=== PATIENT | female | born 1990 | race Caucasian/White ===

== ENCOUNTER → 2022-04-12 08:57 | Outpatient (BNVA) | payer OTHER, SELFPAY | PROVIDERS: PCP Hospitalist; Visit Provider Physician Assistant | DX: Z87.19 Personal history of other diseases of the digestive system (principal) | CPT/HCPCS: 99202 ==

== ENCOUNTER 2022-06-09 11:36 | Day surgery (SDC) | payer OTHER, SELFPAY ==
[2022-06-07 11:19] VITALS: BMI 24.9
--- NOTE | 2022-06-08 10:00 | HO.ANESPROP2 ---
HPI - Anesthesia Eval Consult details Narrative: 32yo F for Colonoscopy PMFSH Active Problems Active Problems: All Active Problems (Updated 04/12/22 @ 09:58 by Jasmin Andrew PA-C) Mixed anxiety and depressive disorder (Acute) Hx of Crohn's disease (Acute) Normal physical exam (Acute) Past Medical History Medical History Hx of Crohn's disease Mixed anxiety and depressive disorder Surgical History Surgical History Hx of colonoscopy Social History Social History Housing: House Patient Tobacco Use Status: Never used Tobacco e-Cigarette/Vaping Use: Never Used Current occupational status: employed Current occupation: [employer] Meds Allergies Allergy/AdvReac Type Severity Reaction Status Date / Time No Known Allergies Allergy Verified 04/12/22 09:09 Exam Exam Date and Time: June 08, 2022 1000 Height,Weight and Vital Signs: Height 5 ft 4 in Weight 65.771 kg Assessment and Plan Assessment Anesthesia Assessment: Chart Reviewed
[2022-06-09 11:59] VITALS: BMI 24.0
[2022-06-09 12:02] LABS: UPreg QC Valid YES; Urine Pregnancy NEGATIVE (NEGATIVE)
[2022-06-09 12:07] VITALS: BP 106/68; PULSE 84; RESP 18; TEMP 36.6; O2SAT 96
[2022-06-09 12:09] VITALS: BMI 24.0
--- NOTE | 2022-06-09 12:26 | HO.ANESPROP2 ---
[facility] Active Problems Active Problems: All Active Problems (Updated 06/08/22 @ 10:01 by Kierra Whitfield NP) Hx of Crohn's disease (Acute) Normal physical exam (Acute) Past Medical History Medical History Hx of Crohn's disease Mixed anxiety and depressive disorder Family History Family history of problems with anesthesia: No Surgical History Surgical History Hx of colonoscopy History of Problems with Anesthesia: No Social History Social History Housing: House Patient Tobacco Use Status: Never used Tobacco e-Cigarette/Vaping Use: Never Used Use of substances other than those prescribed or required for medical reasons: No Are you DNR?: No Advance Directives: No Advance Directives Information Provided: Yes Current occupational status: employed Current occupation: [employer] Allergies Allergy/AdvReac Type Severity Reaction Status Date / Time No Known Allergies Allergy Verified 04/12/22 09:09 Active Medications: Current Medications Lactated Ringer's (Lr) 1,000 mls @ 100 mls/hr IVCONT .Q10H SUZANNA Exam Exam Date and Time: June 09, 2022 1226 Height,Weight and Vital Signs: Height 5 ft 4 in Weight 63.503 kg Last Vital Signs Temp 97.9 F 06/09/22 12:07 Pulse 84 06/09/22 12:07 Resp 18 06/09/22 12:07 BP 106/68 06/09/22 12:07 Pulse Ox 96 06/09/22 12:07 O2 Del Method Room Air 06/09/22 12:07 Pertinent Lab Results Pertinent Lab Results: Laboratory Tests 06/09/22 11:48 Urine Test NEGATIVE Airway Mallampati Class: II TM Dist: >3cm Neck ROM: Full Heart: RRR Lungs: CTA Assessment and Plan Assessment Anesthesia Assessment: Anesthesia Plan Discussed Final Anesthetic Review Family History of Problems with Anesthesia: No History of Problems with Anesthesia: No NPO: Yes ASA Class: II Final Preanesthetic Review: Meds/Allgs Chart Reviewed, Consent Obtained/Reviewed and Anes Risks/Benef Reviewed Patient Risk: Low Procedure Risk: Low Anesthetic Plan Anesthetic Plan: MAC: Disposition: Standard PACU
--- NOTE | 2022-06-09 12:31 | P.HPSUR_ITS ---
Pre-Procedural Eval Section A Date of Service: 06/09/22 Section B Chief Complaint: hx of crohns Relevant Family History (Specify if Yes): No Relevant Social History: None Present Medications: see Short Stay Collaborative assessment Medical History: Significant History (crohns,anxiety ) History of Previous Operations: No relevant previous surgery Allergies: Allergies Allergy/AdvReac Type Severity Reaction Status Date / Time No Known Allergies Allergy Verified 04/12/22 09:09 Review of Systems Sugical H&P ROS: Negative: Constitution, Cardiovascular, Respiratory, Neurological, Psychiatric, Hem-Onc, Allergic/Immunologic, Gastrointestinal, Genitourinary, Musculoskeletal, Integumentary, Endocrine and Eyes/Ears/Nose/Throat Exam Surgical H&P Exam: Normal: HEENT, Normal: Heart, Normal: Lungs, Normal: Extremit ies, Normal: Abdomen, Normal: Skin and Normal: Neurological Plan Diagnosis/Plan: Unchanged I have reviewed the history and physical and performed a pertinent physical examination on my patient. No changes have occurred unless specified. Time Spent With Patient Time: Total time managing care of this patient today ____ minutes.
--- NOTE | 2022-06-09 12:32 | P.OP_ITS ---
Operative Note Operative Note Date of Service: 06/09/22 Narrative: Operative Information Procedure Description: Colonoscopy Indication: hx of crohns disease Anesthesia: MAC COLONOSCOPY Instrument: Olympus variable stiffness pediatric scope 190L Colonoscopy Monitoring: Vital signs and clinical assessment, continuous EKG monitoring, Pulse oximetry, Carbon Dioxide monitoring and blood pressure monitoring were done throughout the procedure. Colon withdrawal time was 12 minutes. Procedure: The patient was placed in the left lateral decubitis position and pre-procedure medications were administered. After a digital rectal examination of the ano-rectum, the video colonoscope was inserted into the rectum and advanced through the colon to the cecum/TI. The colonoscope was slowly withdrawn in a retrograde panoramic fashion and the colon mucosa was carefully examined including a retroflexed view of the rectum. Findings and interventions are described below. Procedure Difficulty: moderate due to looping and tortuous colon Findings: Terminal Ileum-normal, bx taken Random bx taken from right, transverse, and left colon, in separate jars Cecum:normal Ascending Colon: normal Transverse Colon -normal Descending Colon:normal Sigmoid Colon: normal Rectum: Retroflexion with small internal hemorrhoids, grade I Anorectum - normal Colon preparation: [place] Bowel Preparation Scale Right colon; 2 Transverse colon: 3 Left colon; 3 (0 = Unprepared colon segment with mucosa not seen due to solid stool that cannot be cleared. 1 = Portion of mucosa of the colon segment seen, but other areas of the colon segment not well seen due to staining, residual stool and/or opaque liquid. 2 = Minor amount of residual staining, small fragments of stool and/or opaque liquid, but mucosa of colon segment seen well. 3 = Entire mucosa of colon segment seen well with no residual staining, small fragments of stool or opaque liquid) Impression and Post Procedure Diagnosis: tortuous colon, internal hemorrhoids Plan: High fiber diet leaflet Avoid straining at stool, epsom salts and sitz bath, anusol supps or cream Repeat Colonoscopy in 2 years or earlier if clinically indicated Above findings were reviewed with the patient and relevant handouts were provided if indicated.
[2022-06-09] MEDS: Lactated Ringers 1,000 ML 100 ML IVCONT (12:34)
[2022-06-09 13:18] VITALS: BP 99/54; PULSE 76; RESP 16; TEMP 36.1; O2SAT 96
[2022-06-09 13:33] VITALS: BP 103/62; PULSE 69; RESP 16; TEMP 36.1; O2SAT 98
== END 2022-06-09 14:02 | disposition home or self-care (01) ==
PROVIDERS: Nurse Practitioner; PCP Hospitalist; Visit Provider Internal Medicine Gastroenterology
PROC: 0DJD8ZZ Inspection of Lower Intestinal Tract, Via Natural or Artificial Opening Endoscopic (ICD-10-PCS; CPT 45378; principal; 2022-06-09 13:00)
DX: K52.9 Noninfective gastroenteritis and colitis, unspecified (principal); K56.2 Volvulus; K64.0 First degree hemorrhoids; F41.8 Other specified anxiety disorders; Z79.899 Other long term (current) drug therapy
CPT/HCPCS: 45380; 81025; 88305

== ENCOUNTER → 2022-07-12 15:03 | Outpatient (BNVA) | payer OTHER, SELFPAY | PROVIDERS: PCP Hospitalist; Visit Provider Physician Assistant | DX: K64.9 Unspecified hemorrhoids (principal); Z87.19 Personal history of other diseases of the digestive system | CPT/HCPCS: 99212 ==

== ENCOUNTER 2022-08-15 08:08 | Outpatient (REF) | payer OTHER, SELFPAY ==
--- NOTE | ~2022-08-15 | CT_ITS ---
EXAMINATION: CT ENTEROGRAPHY ABDOMEN AND PELVIS WITH CONTRAST CLINICAL INFORMATION: There is a history of the digestive disorder COMPARISON: 04/22/2014 TECHNIQUE: Study performed with oral VoLumen (1350 mL) and 480 mL of water to distend the abdomen. The patient was injected with 85 mL Omnipaque 350 intravenous contrast which was administered without adverse effect. Coronal and sagittal reformatted images were obtained at the technologist's workstation. This CT examination was performed using dose optimization techniques as appropriate, variously including the following: *Automated exposure control *Adjustment of mA and/or kV according to patient size (this includes techniques or standardized protocols for targeted exams where dose is matched to indication/reason for exam; i.e. extremities or head) *Use of iterative reconstruction technique DLP: 356 mGy-cm FINDINGS: GASTROINTESTINAL FINDINGS: Stomach: Well-distended and normal in appearance. Small intestine: Satisfactorily distended and normal in appearance. Large intestine: Well-distended and normal in appearance. No perirectal changes demonstrated. The appendix is normal. Additional findings: No abnormal enhancement of the vasa recta or significant mesenteric or retroperitoneal lymphadenopathy is seen. No abdominal abscess or fistulous tract demonstrated. 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 Ureters and bladder: Within normal limits Lymphovascular structures: Within normal limits Bones: Within normal limits. Incidental limbus vertebra L1 and L2. Lung bases: Limits IUD in place without migration. CT/CT enterography IMPRESSION: No evidence for any inflammatory bowel disease.
== END 2022-08-15 08:09 | disposition home or self-care (01) ==
LOC: HO.CT 08:08
PROVIDERS: PCP Hospitalist; Visit Provider Physician Assistant
DX: Z87.19 Personal history of other diseases of the digestive system (principal)
CPT/HCPCS: 74177; Q9967

== ENCOUNTER 2022-08-24 09:21 | Outpatient (REF) | payer OTHER, SELFPAY ==
[2022-08-24 11:25] LABS: MANUAL DIFF FLAG NO
[2022-08-24 11:43] LABS: Basophils Absolute Auto 0.1 X10*3/uL (0.0-0.2); Basophils Percent Auto 1.3 % (0-2); Eosinophils Absolute Auto 0.2 X10*3/uL (0.0-0.4); Eosinophils Percent Auto 4.5 % (0-4); Hematocrit 39.2 % (37.0-47.0); Hemoglobin 12.9 g/dl (12.0-16.0); Imm Gran Abs Auto 0.01 X10*3/uL (0.00-0.03); Imm Gran Pct Auto 0.2 % (0.0-0.4); Lymphocytes Absolute Auto 1.4 X10*3/uL (1.2-4.9); Lymphocytes Percent Auto 25.3 % (20-40); Mean Corpuscular HGB Conc 32.9 g/dl (31.0-35.0); Mean Corpuscular Hemoglobin 32.1 pg (27.0-33.0); Mean Corpuscular Volume 97.5 fL (80.0-98.0); Mean Platelet Volume 9.5 fL (9.4-12.3); Monocytes Absolute Auto 0.5 X10*3/uL (0.1-1.2); Monocytes Percent Auto 8.8 % (2-11); Neutrophils Absolute Auto 3.2 x10*3/uL (2.0-8.3); Neutrophils Percent Auto 59.9 % (45-73); Platelet Count 240 X10*3/uL (160-400); Red Blood Count 4.02 X10*6/uL (4.20-5.50); Red Cell Distribution Width 11.9 % (11.0-16.0); White Blood Count 5.3 X10*3/uL (4.8-10.8)
[2022-08-24 12:09] LABS: Alanine Aminotransferase 24 U/L (0-31); Albumin Level 4.2 g/dL (3.5-5.0); Alkaline Phosphatase 49 U/L (39-117); Aspartate Amino Transferase 19 U/L (5-31); Blood Urea Nitrogen 13 mg/dL (9-16); Chloride 105 mmol/L (96-108); Cholesterol 154 mg/dL; Estimated Glomerular Filt Rate > 60; Glucose Fasting 110 mg/dL (60-99); HDL Cholesterol 64 mg/dL; LDL Cholesterol Calculated 83 mg/dl; Potassium 3.9 mmol/L (3.3-5.1); Sodium 140 mmol/L (135-145); Total Protein 6.6 g/dL (6.5-8.0); Triglycerides 35 mg/dL
[2022-08-24 12:14] LABS: Appearance Urine Clear; Color Urine Yellow; Glucose Urine UA Negative (Negative); Leukocyte Esterase Urine Negative (Negative); Nitrite Urine Negative (Negative); Specific Gravity - Urine <= 1.005 (1.005-1.025); Urine Blood Negative (Negative); Urine Ketones Negative (Negative); Urine Protein Negative (Neg-Trace)
[2022-08-24 12:31] LABS: TSH reflex Free T4 1.14 uIU/mL (0.32-4.0)
[2022-08-24 14:59] LABS: Bilirubin Total 0.4 mg/dL (0.0-1.0)
[2022-08-24 20:05] LABS: Carbon Dioxide 23 mmol/L (22-29)
== END 2022-08-24 09:22 | disposition home or self-care (01) ==
LOC: HO.WFDLDS 09:21
PROVIDERS: Hospitalist; Visit Provider Physician Assistant
DX: Z00.00 Encounter for general adult medical examination without abnormal findings (principal); K52.9 Noninfective gastroenteritis and colitis, unspecified; K64.9 Unspecified hemorrhoids; Z87.19 Personal history of other diseases of the digestive system; Z11.3 Encounter for screening for infections with a predominantly sexual mode of transmission
CPT/HCPCS: 36415; 80053; 80061; 81003; 84443; 85025

== ENCOUNTER 2022-10-18 09:52 | Outpatient (AMB) | payer SELFPAY ==
[2022-10-18 10:15] VITALS: BP 106/68; BMI 23.8
--- NOTE | 2022-10-18 10:15 | MHC.OFFVIS ---
Intake Vital Signs 10/18/22 10:15 Height 5 ft 5 in Weight 143 lb BMI 23.8 BP 106/68 Intake Visit Reasons: New patient Annual Intake Note: Mirena removal next year. 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 She has a history of HPV on her Pap smear about a year and half ago where she used to receive care in [place]. She has a Mirena IU S and she was told she could leave it in for an extended period of time it has been in about 6 years she got periods at the start but not for many years. She is sexually active in a monogamous relationship has no worries about STDs but is open to testing today at the visit. She is getting on November 13 and anticipates that sometime in the near future she would be discussing removal of the Mirena IU S and planning a . She has Crohn's disease which is currently in remission and she is on some medications for mental health. [facility] Medical History (Updated 10/18/22 @ 10:53 by Kat Moser CNM) Mixed anxiety and depressive disorder Hx of Crohn's disease Surgical History (Updated 10/18/22 @ 10:18 by MICHELLE Lagos) Hx of wisdom tooth extraction Hx of endoscopy Hx of colonoscopy Family History (Updated 10/18/22 @ 10:19 by MICHELLE Lagos) Maternal Grandmother Breast cancer Social History (Updated 10/18/22 @ 10:19 by MICHELLE Lagos) Household Members Other:: getting in Oct. Housing: House Alcohol intake: current Alcohol intake frequency: holidays/special occasions only Patient Tobacco Use Status: Never used Tobacco e-Cigarette/Vaping Use: Never Used Current occupational status: employed Current occupation: [employer] Female Reproductive History Menstrual Age of Menarche: 11 Duration of menses: 3-5 days control method: progestin IUCD Total pregnancies: 0 History of abnormal pap smear: Yes ([id number]) Physical Exam Vital Signs: Last Vital Signs BP 106/68 10/18/22 10:15 BMI result Body Mass Index 23.8 Const General: healthy appearing, comfortable, no acute distress, well developed and alert Nutritional Appearance: average body habitus Orientation/consciousness: patient oriented x3 Limitations: no limitations HEENT Head: Yes normocephalic Neck Neck: Yes normal visual inspection Thyroid: Thyroid normal Chest Chest palpation & inspection: normal inspection of the chest Breast/axilla inspection: normal inspection of the breasts and normal inspection of the axillae Breast/axilla palpation: normal palpation of the breasts and normal palpation of the axillae Resp Effort & Inspection: normal respiratory effort GI Inspection: Yes normal to inspection, No Abdominal wall edema and No distended Palpation (GI): Soft to palpation and nontender Other: Cervix pink closed smooth no Mirena string visible in os nulliparous. Uterus small posterior nontender mobile. Adnexa nontender not enlarged. Good tone with Kegel . General: Yes bladder normal to palpation External Female Exam: normal external appearance and normal appearance of the urethra Speculum Exam - Vagina: normal appearance of the vagina, normal palpation and normal vaginal discharge Speculum Exam - Cervix: normal appearance of the cervix, normal palpation, nontender and Other cervical findings present (Friable with Pap.) Bimanual exam- vagina & uterus: normal bimanual exam, normal palpation, uterine size normal, bladder normal to palpation, consistency normal, normal palpation, uterine mobility normal, uterine shape normal, No Cervical tenderness present, non-tender and no cervical motion tenderness Bimanual Exam- Adnexa, other: normal adnexae, no masses, normal and No adnexal tenderness Neuro General: patient oriented x3 Assessment & Plan Assessment & Plan (1) Well woman exam with routine gynecological exam: Code(s): Z01.419 - Encounter for gynecological examination (general) (routine) without abnormal findings (2) Family planning: Code(s): Z30.09 - Encounter for other general counseling and advice on contraception (3) Breast cancer screening: Code(s): Z12.39 - Encounter for other screening for malignant neoplasm of breast (4) Screen for sexually transmitted diseases: Code(s): Z11.3 - Encounter for screening for infections with a predominantly sexual mode of transmission (5) Cervical cancer screening: Comment: hx HPV pos Code(s): Z12.4 - Encounter for screening for malignant neoplasm of cervix (6) Presence of 52 mg levonorgestrel-releasing intrauterine device (IUD): Comment: Has it for 6 years, see note, string not visible... Code(s): Z97.5 - Presence of (intrauterine) contraceptive device Plan -----Discussed in this visit the following: healthy balanced diet, regular and consistent exercise, getting recommended health screens, doing the best she can for her particular health concerns, kegel exercises, pap smear screening and followup recommendations, mammography screening and SBE, normal changes in cycles in her life stage---for her mammograms with started age 39 she does have a grandmother who had breast cancer. .---I discussed with pt some of the optimal strategies for planning a , including achieving the best health she can before , including heathy balanced diet, exercise, wt loss to ideal BMI if appropriate, avoiding toxic substances and medications, not smoking, and taking a multivitamin w folic acid daily. Any specific health concerns should be managed before seeking/ putting oneself at risk of pregancy. In her case I recommend she have conversations with her primary care provider who currently is prescribing her medications and discuss any considerations to planning and if weaning off the medications is necessary how to plan for that. Discussed that when it comes time to planned if the strings are visible it will be easy to remove the Mirena if the strings are still not visible it may be a little bit more challenging she had them trimmed at 1 stage years ago and in retrospect she might have plan differently. Discussed that there are ways to remove it. She says she had a scan done to check on her Crohn's in the spring and the Mirena was visible in the correct place. Discussed the options in the [place] for care and delivery. Discussed that we can provide care but not delivery and that we send women to [facility]. Discussed that other options include starting and receiving all of ones care with the team who would be involved in the delivery of her baby in the future and that would include [facility], [facility] [place] and [address] [place] [address]. She lives in [facility] and thinks that heading [place] to [place] and options in that area would better serve her needs. Orders: Orders CT NG by PCR Today Z01.419 - Encounter for gynecological examination (general) (routine) without abnormal findings Pap Smear Today Z01.419 - Encounter for gynecological examination (general) (routine) without abnormal findings Bacterial Vaginosis Panel Today Z01.419 - Encounter for gynecological examination (general) (routine) without abnormal findings Coding Level of Care Code New Pt Prev Care [id number] Diagnoses Well woman exam with routine gynecological exam Z01.419 Family planning Z30.09 Breast cancer screening Z12.39 Screen for sexually transmitted diseases Z11.3 Cervical cancer screening Z12.4 Presence of 52 mg levonorgestrel-releasing intrauterine device (IUD) Z97.5
== END 2022-10-18 11:14 | disposition home or self-care (01) ==
PROVIDERS: PCP Hospitalist; Visit Provider Advanced Practice Midwife
DX: Z01.419 Encounter for gynecological examination (general) (routine) without abnormal findings (principal); Z30.09 Encounter for other general counseling and advice on contraception; Z12.39 Encounter for other screening for malignant neoplasm of breast; Z11.3 Encounter for screening for infections with a predominantly sexual mode of transmission; Z12.4 Encounter for screening for malignant neoplasm of cervix; Z97.5 Presence of (intrauterine) contraceptive device
CPT/HCPCS: 99385

== ENCOUNTER 2022-10-18 09:52 | Outpatient (REF) | payer SELFPAY ==
[2022-10-19 05:46] LABS: CT PCR NOT DETECTED (Not Detect.); NG PCR NOT DETECTED (Not Detect.)
[2022-10-19 15:11] LABS: BV Int Neg Control Negative (Negative); BV Int Pos Control Positive (Positive)
[2022-10-22 03:34] LABS: HPV mRNA E6/E7 rflx Not Detected (Not Detected)
== END 2022-10-18 09:53 | disposition home or self-care (01) ==
LOC: HO.LNP 09:52
PROVIDERS: PCP Hospitalist; Visit Provider Advanced Practice Midwife
DX: Z01.419 Encounter for gynecological examination (general) (routine) without abnormal findings (principal); Z11.51 Encounter for screening for human papillomavirus (HPV); Z20.2 Contact with and (suspected) exposure to infections with a predominantly sexual mode of transmission
CPT/HCPCS: 0353U; 87480; 87510; 87624; 87660; 88142

== ENCOUNTER 2023-04-10 08:04 | Outpatient (AMB) | payer OTHER, SELFPAY ==
--- NOTE | 2023-04-10 08:07 | MHC.PC.OV ---
Vital Signs 04/10/23 08:32 Height 5 ft 5 in Weight 144 lb 6 oz BMI 24.0 BP 116/58 L Blood Pressure Location Lt brachial Position Sitting Pulse 77 Pulse Source Pulse Oximeter Pulse Oximetry (%) 96 Oxygen Delivery Method Room Air Intake Visit Reasons: physical wellness/prevention YA Intake Note: Patient is here for a physical. Administrative Director Required: No Accompanied by: Self / Same As Patient Allergies No Known Allergies Allergy (Verified 04/10/23 08:15) Medication List - Last Reconciled 04/10/23 by JOHN Thornton-DANIELLA bupropion HCl 150 mg PO QAM cholecalciferol (vitamin D3) 25 mcg PO DAILY escitalopram oxalate 20 mg PO DAILY levonorgestrel (Mirena) intrauterine Tobacco use date assessed: 04/10/23 Dental Screening Dental Screen Date: 04/10/23 Did you have a dental visit in the last 12 months?: Yes Did you have a dental problem in the last 6 months where you did not have access to dental care?: No Was dental information given to patient?: Patient has dentist HPI HPI Comments History of Present Illness Details 32-year-old female Crohn's disease, MDD, [facility]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 Interested in family planning in the next year or two. Wonders about tapering off her current medications to prepare for motherhood. These meds were prescribed by infant and toddler teacher in the past and then taken over by PCP. Reports no concerns r/t Crohns. 116/58 L 96% 77 PFSH Medical History (Updated 04/10/23 @ 08:38 by VÍCTOR Thornton) Mixed anxiety and depressive disorder Hx of Crohn's disease Surgical History (Updated 10/18/22 @ 10:18 by MICHELLE Lagos) Hx of wisdom tooth extraction Hx of endoscopy Hx of colonoscopy Family History (Updated 04/10/23 @ 09:33 by Farheen Patel CMA) Maternal Grandmother Breast cancer Social History (Updated 04/10/23 @ 09:32 by Farheen Patel CMA) Household Members: Spouse Household Members Other:: getting in Oct. Housing: House 75 years or older and lives alone: No Alcohol intake: current Alcohol intake frequency: holidays/special occasions only Patient Tobacco Use Status: Never used Tobacco e-Cigarette/Vaping Use: Never Used Use of substances other than those prescribed or required for medical reasons: No Have you been hit, kicked, punched, or otherwise hurt by someone within the past year? If so, by whom?: No Do you feel safe in your current relationship?: No Current Relationship Is there a partner from a previous relationship who is making you feel unsafe now?: No Are you made to feel afraid or neglected: No service: No Current occupational status: employed Current occupation: [employer] Current occupational exposures/hazards: No Sexually active: Yes Sexual orientation: Straight/Heterosexual Gender identity: Female Cognitive needs: No Hearing needs: No Vision needs: No Female Reproductive History Menstrual Age of Menarche: 11 Questionnaire PHQ-9 Over the last 2 weeks, how often have you been bothered by any of the following problems? 1. Little interest or pleasure in doing things: not at all 2. Feeling down, depressed, or hopeless: several days 3. Trouble falling or staying asleep, or sleeping too much: not at all 4. Feeling tired or having little energy: several days 5. Poor appetite or overeating: not at all 6. Feeling bad about yourself - or that you are a failure or have let yourself or your family down: several days 7. Trouble concentrating on things, such as reading the newspaper or watching television: not at all 8. Moving or speaking so slowly that other people could have noticed. Or the opposite - being so fidgety or restless that you have been moving around a lot more than usual: not at all 9. Thoughts that you would be better off or of hurting yourself in some way: not at all Total score: 3 Depression Screening Interpretation: Positive Depression Screening Follow-up: Existing condition and In treatment Depression Screening Done: Yes 36455 - PHQ-9 Billing: Yes Source: Developed by Drs. Desmond Lara, Salma B.WMauro Caldera and colleagues, with an educational vidal from [employer]. Thrive Questionnaire Date Thrive assessed: 03/28/22 I am a: Patient What is your living situation today?: I have a steady place to live Within the past 12 months, did the food you bought not last and you didn't have the money to get more?: Never true Within the past 12 months, did you worry whether your food would run out before you got money to buy more?: Never true Do you have trouble paying for medicines?: No Do you have trouble getting transportation to medical appointments?: No Do you have trouble paying your heating and electricity bill?: No Do you have trouble taking care of your child, family member or friend?: No Do you have trouble with day-to-day activities such as bathing, preparing meals, shopping, managing finances, etc.?: No Are you currently unemployed and looking for a job?: No Are you interested in more education?: No Please select the resources that you would like help with: None Currently or been in a relationship where the following occur: no concerns reported THRIVE Score: 0 AUDIT C Alcohol Use Questionnaire (AUDIT-C) 1. How often do you have a drink containing alcohol?: 2-4 times a month 2. How many drinks containing alcohol do you have on a typical day when you are drinking?: 1 or 2 3. How often do you have six or more drinks on one occasion?: Never Total Score: 2 Score Reviewed/Action Taken: Yes AMIRA-7 AMB Questionnaire AMIRA-7 Date AMIRA - 7 assessed: 03/28/22 Feeling nervous, anxious, or on edge: 1 = Several days Not being able to stop or control worryin = Not at all Worrying too much about different things: 1 = Several days Trouble relaxin = Not at all Being so restless that it is hard to sit still: 0 = Not at all Becoming easily annoyed or irritable: 0 = Not at all Feeling afraid as if something awful might happen: 0 = Not at all Total AMIRA-7 score (0-4 normal; 5-9 mild; 10-14 moderate; 15-21 severe): 2 Source: Developed by Drs. Desmond Lara, Mauro Strong and colleagues, with an educational vidal from [employer]. AMIRA-7 Assessment Billing AMIRA-7 Assessment Tool: AMIRA-7 Assessment 10071 Review of Systems Const All systems reviewed & are unremarkable except as noted in HPI and below Physical exam (Primary Care) Vital Signs: Last Vital Signs Pulse 77 04/10/23 08:32 BP 116/58 L 04/10/23 08:32 Pulse Ox 96 04/10/23 08:32 Oxygen Delivery Method Room Air 04/10/23 08:32 BMI result Body Mass Index 24.0 Tobacco/Smoking Status: Tobacco use Status Tobacco use date assessed 04/10/23 04/10/23 08:13 Patient Tobacco Use Status Never used Tobacco 04/10/23 08:08 e-Cigarette/Vaping Use Never Used 04/10/23 08:08 PHQ-9: PHQ-9 Score PHQ-9: Total score 3 04/10/23 09:30 Depression Screening Interpretation: Positive Depression Screening Follow-up: Existing condition and In treatment Thrive Assessment: Date of Thrive Assessment Date Thrive assessed 03/28/22 04/10/23 08:08 Currently or been in a relationship where the following occur: no concerns reported Const Other: awake alert oriented NAD MMM LS CTAB RRR Mildly anxious yet cooperative and pleasant Office Procedures Flu Questionnaire Does the patient have a severe egg allergy?: No Does the patient have severe life threatening allergies?: No Does the patient have a fever or illness today?: No Has the patient ever had Guillain-[place] Syndrome?: No Has the patient ever had any past reaction to a flu shot?: No Immunizations flu vacc [id number] 6mos up(PF) 60 mcg(15 mcgx4)/0.5 mL IM syringe Performing Provider: VÍCTOR Thornton Performing Location: [facility] Administered by: Farheen Patel CMA on 04/10/23 09:28 Dose Route Admin Location Dispensed Lot Number Expiration Date [employer] Studio Assistant 0.5 mL IM Left Deltoid 0.5 mL [id number] 08/06/23 [id number] [employer] VIS Given Date VIS Provided VIS Publication Date 04/10/23 Single Vaccine 20 Eligibility Eligibility Date Funding Source Not [facility] Eligible 04/10/23 Private Assessment and Plan Assessment & Plan (1) MDD (major depressive disorder), recurrent episode: Comment: Active, currently maintained on Lexapro and bupropion. Active with [facility]. Interested in a psychiatry referral to discuss coming off of these medications for family planning purposes. Referral placed today Code(s): F33.9 - Major depressive disorder, recurrent, unspecified Qualifiers: Major depression episode severity: mild Qualified Code(s): F33.0 - Major depressive disorder, recurrent, mild (2) AMIRA (generalized anxiety disorder): Comment: Active, currently maintained on Lexapro and bupropion. Active with [facility]. Interested in a psychiatry referral to discuss coming off of these medications for family planning purposes. Referral placed today Code(s): F41.1 - Generalized anxiety disorder (3) Crohn's disease in remission: Comment: Was on 1 biologic in the past. Colonoscopy 2022 within normal limits. Managed by [facility]. Repeat colonoscopy in 2024 Code(s): K50.90 - Crohn's disease, unspecified, without complications (4) Presence of 52 mg levonorgestrel-releasing intrauterine device (IUD): Comment: Present for 6 years. Referral placed to 7 sisters for further management Code(s): Z97.5 - Presence of (intrauterine) contraceptive device (5) Cervical cancer screening: Comment: hx HPV pos; 10/18/2022 Pap is negative with negative HPV. Code(s): Z12.4 - Encounter for screening for malignant neoplasm of cervix (6) Family planning: Comment: Referral placed a 7 sister's midwifery care Code(s): Z30.09 - Encounter for other general counseling and advice on contraception Plan: Total time spent caring for the patient today was 40 minutes. This includes time spent before the visit reviewing the chart, time spent during the visit, and time spent after the visit on documentation This note is constructed using voice recognition software. While every effort has been made to ensure accuracy in agricultural aircraft pilot, still errors may have been included Sometimes, these errors may affect the content or meaning of the given sentence . Plan Return to office in 2-3 months for complete physical exam Orders: Orders LDL Cholesterol Direct Today F33.9 - Major depressive disorder, recurrent, unspecified, F41.1 - Generalized anxiety disorder, K50.90 - Crohn's disease, unspecified, without complications, Z00.00 - Encounter for general adult medical examination without abnormal findings Vitamin D 1,25 dihydroxy Today F33.9 - Major depressive disorder, recurrent, unspecified, F41.1 - Generalized anxiety disorder, K50.90 - Crohn's disease, unspecified, without complications, Z00.00 - Encounter for general adult medical examination without abnormal findings Hemoglobin A1c Today F33.9 - Major depressive disorder, recurrent, unspecified, F41.1 - Generalized anxiety disorder, K50.90 - Crohn's disease, unspecified, without complications, Z00.00 - Encounter for general adult medical examination without abnormal findings Comprehensive Met. Panel Today F33.9 - Major depressive disorder, recurrent, unspecified, F41.1 - Generalized anxiety disorder, K50.90 - Crohn's disease, unspecified, without complications, Z00.00 - Encounter for general adult medical examination without abnormal findings Microalbumin, Random (w Creat) Today F33.9 - Major depressive disorder, recurrent, unspecified, F41.1 - Generalized anxiety disorder, K50.90 - Crohn's disease, unspecified, without complications, Z00.00 - Encounter for general adult medical examination without abnormal findings TSH reflex Free T4 Today F33.9 - Major depressive disorder, recurrent, unspecified, F41.1 - Generalized anxiety disorder, K50.90 - Crohn's disease, unspecified, without complications, Z00.00 - Encounter for general adult medical examination without abnormal findings Hemoglobin and Hematocrit Today F33.9 - Major depressive disorder, recurrent, unspecified, F41.1 - Generalized anxiety disorder, K50.90 - Crohn's disease, unspecified, without complications, Z00.00 - Encounter for general adult medical examination without abnormal findings Influenza [id number] Immunization Today Z23 - Encounter for immunization Referrals Psychiatry Referral F33.9 - Major depressive disorder, recurrent, unspecified, F41.1 - Generalized anxiety disorder Gynecologic Oncology Referral Z12.4 - Encounter for screening for malignant neoplasm of cervix, Z30.09 - Encounter for other general counseling and advice on contraception, Z97.5 - Presence of (intrauterine) contraceptive device Coding Level of Care Code Est Pt Level 5 (15790) Diagnoses Mild episode of recurrent major depressive disorder F33.0 Major depression episode severity: mild AMIRA (generalized anxiety disorder) F41.1 Crohn's disease in remission K50.90 Presence of 52 mg levonorgestrel-releasing intrauterine device (IUD) Z97.5 Cervical cancer screening Z12.4 Family planning Z30.09 Additional Codes AMIRA-7 Assessment Billing - AMIRA-7 Assessment Tool: AMIRA-7 Assessment 48364 ([id number])
[2023-04-10 08:32] VITALS: BP 116/58; PULSE 77; O2SAT 96; BMI 24.0
== END 2023-04-10 09:19 | disposition home or self-care (01) ==
PROVIDERS: PCP Hospitalist; Visit Provider Nurse Practitioner Family
DX: K50.90 Crohn's disease, unspecified, without complications (principal); F33.0 Major depressive disorder, recurrent, mild; F41.1 Generalized anxiety disorder; Z23 Encounter for immunization; Z97.5 Presence of (intrauterine) contraceptive device; Z30.09 Encounter for other general counseling and advice on contraception
CPT/HCPCS: 90471; 90686; 99215

== ENCOUNTER 2023-04-10 08:44 | Outpatient (REF) | payer OTHER, SELFPAY ==
[2023-04-10 11:48] LABS: Hematocrit 41.5 % (37.0-47.0); Hemoglobin 13.7 g/dl (12.0-16.0)
[2023-04-10 11:50] LABS: Estimated Average Glucose 94 mg/dL; Hemoglobin A1c % 4.9 % (<6.0)
[2023-04-10 12:09] LABS: Alanine Aminotransferase 18 U/L (0-31); Albumin Level 4.4 g/dL (3.5-5.0); Alkaline Phosphatase 58 U/L (39-117); Anion Gap 11 (12-20); Aspartate Amino Transferase 20 U/L (5-31); Bilirubin Total 0.4 mg/dL (0.0-1.0); Blood Urea Nitrogen 11 mg/dL (9-16); Calcium 9.7 mg/dL (8.4-10.2); Carbon Dioxide 28 mmol/L (22-29); Chloride 105 mmol/L (96-108); Estimated Glomerular Filt Rate > 60; Glucose Random 86 mg/dL (60-115); Sodium 140 mmol/L (135-145); Total Protein 6.8 g/dL (6.5-8.0)
[2023-04-10 12:26] LABS: TSH reflex Free T4 0.95 uIU/mL (0.32-4.0)
[2023-04-10 12:29] LABS: Creatinine Urine 13.58 mg/dL; Microalbumin Urine < 5.0 mg/L
[2023-04-14 12:08] LABS: LDL Cholesterol Direct 81 mg/dL (<100); VITAMIN D (1,25 OH) D3 36 pg/mL; Vit D (1,25-Dihydroxy) Total 36 pg/mL (18-72); Vitamin D (1,25 OH) D2 <8 pg/mL
== END 2023-04-10 08:45 | disposition home or self-care (01) ==
LOC: HO.WFDLDS 08:44
PROVIDERS: Visit Provider Nurse Practitioner Family
DX: Z00.00 Encounter for general adult medical examination without abnormal findings (principal); K50.90 Crohn's disease, unspecified, without complications; F33.9 Major depressive disorder, recurrent, unspecified; F41.1 Generalized anxiety disorder
CPT/HCPCS: 36415; 80053; 82043; 82570; 82652; 83036; 83721; 84443; 85014; 85018

== ENCOUNTER 2023-06-26 08:06 | Outpatient (AMB) | payer OTHER, SELFPAY ==
--- NOTE | 2023-06-26 08:07 | A.OFFPC_ITS ---
Vital Signs 06/26/23 08:11 Height 5 ft 5 in Weight 149 lb BMI 24.8 BP 108/62 Blood Pressure Location Rt brachial Position Sitting Pulse 76 Pulse Source Pulse Oximeter Pulse Oximetry (%) 97 Intake Visit Reasons: cpe Intake Note: pt is here for annual exam, last pap 06/2022 Motorcycle Racer Required: No Allergies No Known Allergies Allergy (Verified 06/26/23 08:30) Medication List - Last Reconciled 06/26/23 by Gloria Pringle, [facility]- bupropion HCl XL 150 mg PO QAM cholecalciferol (vitamin D3) 25 mcg PO DAILY escitalopram oxalate 20 mg PO DAILY levonorgestrel (Mirena) intrauterine Tobacco use date assessed: 04/10/23 Dental Screening Dental Screen Date: 04/10/23 HPI HPI Comments History of Present Illness Details 32-year-old female Crohn's disease, MDD, AMIRA Surgery - wisdom teeth removed Family hx Dad asthma, alcohol, psych Mom -hypothyroid Siblings - 2 brothers - anxiety and depression MGM: breast cancer age 39, HTN, clotting disorder factor 5 leiden (patient has been screened for this and negative) MGF: HTN, DM, Factor 5 lieden - PGM: life long smoker, age 80 PGF: liver dz related to etoh - Maternal Uncle w/ Factor 5 otherwise denies sig hx in aunt, uncle and first degree cousins Specialists GI pediatric intensive physician Ophtho Counselor [facility] Health maintenance Colonoscopy Jun 09 2022 repeat in 2024 Pap smear history of HPV in 2020, normal October 2022 Vaccines: Tdap UTD, Flu UTD Eyes - wears glasses/contacts, needs exam. Has PPO insurance, does not need referral. Last set of labs August 2022 * abnormal fasting glucose of 1 otherwise Labs 04/2023 WNL including a1c, direct LDL and Vit D WNL Here today for CPE Had appt w/ STATISTICAL SECRETARY 7 sisters, Laura has add'l year on it Has not had an appt w/ Psych d/t insurance changes; active w/ [facility] and will be est care w/ Psych there. Skin - acne on back, using salicylic acid wash; no great improvement. Sleep - no issues Mood - good. new job [employer] this is a promotion and likes this [facility] Medical History (Updated 05/20/24 @ 08:26 by [facility] Mixed anxiety and depressive disorder Hx of Crohn's disease Surgical History Hx of wisdom tooth extraction Hx of endoscopy Hx of colonoscopy Family History Maternal Grandmother Breast cancer Social History Household Members: Spouse Household Members Other:: getting in Oct. Housing: House 75 years or older and lives alone: No Alcohol intake: current Alcohol intake frequency: holidays/special occasions only Patient Tobacco Use Status: Never used Tobacco e-Cigarette/Vaping Use: Never Used service: No Current occupational status: employed Current occupation: [employer] Current occupational exposures/hazards: No Sexual orientation: Straight/Heterosexual Gender identity: Female Cognitive needs: No Hearing needs: No Vision needs: No Female Reproductive History Menstrual Age of Menarche: 11 Questionnaire PHQ-9 Over the last 2 weeks, how often have you been bothered by any of the following problems? 1. Little interest or pleasure in doing things: not at all 2. Feeling down, depressed, or hopeless: not at all 3. Trouble falling or staying asleep, or sleeping too much: not at all 4. Feeling tired or having little energy: several days 5. Poor appetite or overeating: several days 6. Feeling bad about yourself - or that you are a failure or have let yourself or your family down: not at all 7. Trouble concentrating on things, such as reading the newspaper or watching television: several days 8. Moving or speaking so slowly that other people could have noticed. Or the opposite - being so fidgety or restless that you have been moving around a lot more than usual: not at all 9. Thoughts that you would be better off or of hurting yourself in some way: not at all Total score: 3 Depression Screening Interpretation: Negative Depression Screening Done: Yes 02175 - PHQ-9 Billing: Yes Source: Developed by Drs. Desmond Lara, Salma Story, Mauro Saldivar and colleagues, with an educational vidal from [employer]. Thrive Questionnaire Date Thrive assessed: 06/26/23 I am a: Patient What is your living situation today?: I have a steady place to live Within the past 12 months, did the food you bought not last and you didn't have the money to get more?: Never true Within the past 12 months, did you worry whether your food would run out before you got money to buy more?: Never true Do you have trouble paying for medicines?: No Do you have trouble getting transportation to medical appointments?: No Do you have trouble paying your heating and electricity bill?: No Do you have trouble taking care of your child, family member or friend?: No Do you have trouble with day-to-day activities such as bathing, preparing meals, shopping, managing finances, etc.?: No Are you currently unemployed and looking for a job?: No Are you interested in more education?: No Please select the resources that you would like help with: None Currently or been in a relationship where the following occur: no concerns reported THRIVE Score: 0 AMIRA-7 AMB Questionnaire AMIRA-7 Date AMIRA - 7 assessed: 06/26/23 Feeling nervous, anxious, or on edge: 0 = Not at all Not being able to stop or control worryin = Not at all Worrying too much about different things: 0 = Not at all Trouble relaxin = Not at all Being so restless that it is hard to sit still: 0 = Not at all Becoming easily annoyed or irritable: 0 = Not at all Feeling afraid as if something awful might happen: 0 = Not at all Total AMIRA-7 score (0-4 normal; 5-9 mild; 10-14 moderate; 15-21 severe): 0 Source: Developed by Drs. Desmond Lara, Mauro Strong and colleagues, with an educational vidal from [employer]. AMIRA-7 Assessment Billing AMIRA-7 Assessment Tool: AMIRA-7 Assessment 32993 Review of Systems Const Details: Constitutional: Denies fever. Skin: Denies rash. Eye: Denies eye pain. ENMT: Denies sore throat and nasal congestion. Respiratory: Denies shortness of breath and cough. Gastrointestinal: Denies nausea, vomiting or abdominal pain. Cardiovascular: Denies chest pain and syncope. Genitourinary: Denies dysuria. Musculoskeletal: Denies back pain and extremity pain. Neurologic: Denies headaches, confusion, and weakness. Psychiatric: Denies suicidal thoughts and substance abuse. Allergy/ Immunologic: Denies impaired immunity. Physical exam (Primary Care) Vital Signs: Last Vital Signs Pulse 76 06/26/23 08:11 BP 108/62 06/26/23 08:11 Pulse Ox 97 06/26/23 08:11 BMI result Body Mass Index 24.8 Tobacco/Smoking Status: Tobacco use Status Tobacco use date assessed 04/10/23 06/26/23 08:09 Patient Tobacco Use Status Never used Tobacco 06/26/23 08:09 e-Cigarette/Vaping Use Never Used 06/26/23 08:09 Depression Screening Interpretation: Negative Thrive Assessment: Date of Thrive Assessment Date Thrive assessed 03/28/22 06/26/23 08:09 Currently or been in a relationship where the following occur: no concerns reported Const Other: General: Well developed, well nourished, in no acute distress. Appears stated age. Head: Normocephalic, atraumatic. Eyes: Pupils are equal, round and reactive to light and accommodation. Conjunctivae are clear. Vision grossly normal. Ears: TMs clear AU, EACS WNL Nose: Patent, without discharge. Mouth: There are no ulcers or lesions noted. No inflammation, no post nasal drip, no plaques nor exudates. Neck: Supple, no adenopathy or thyromegaly. Lungs: Clear to auscultation bilaterally. No rales, rhonchi or wheeze noted. Good air flow in all gonzales. Heart: Regular rate and rhythm. No murmurs, click, rubs or gallops are noted. Abdomen: Bowel sounds present in all quadrants. The abdomen is soft, nontender, with no masses or organomegaly noted. No hernias are noted. Musculoskeletal: Joints are nontender, without swelling, redness, or effusions. Range of motion is observed to be normal. Pulses: Peripheral pulses are equal and palpable bilaterally. Extremities: No clubbing, cyanosis nor edema is noted. Neurologic: Gait and station normal. Cranial Nerves 2-12 intact. Motor strength grossly symmetrical and intact. No sensory loss. Balance normal. Skin: No rashes, ulcers, or lesions noted. Turgor is good. Skin color is good. Hair and nails are without abnormalities. Psych: Normal eye contact, affect and mood appropriate, and normal interactions. Patient is alert and appropriate to context. Extremities: No clubbing, cyanosis or edema. Assessment and Plan Assessment & Plan (1) Encounter for general adult medical examination without abnormal findings: Code(s): Z00.00 - Encounter for general adult medical examination without abnormal findings Patient Instructions: RTO 1 YEAR FOR CPE, SOONER NEEDED. HEALTH SCREENINGS FOR WOMEN YOU SHOULD VISIT YOUR HEALTH CARE PROVIDER FROM TIME TO TIME, EVEN IF YOU ARE HEALTHY. THE PURPOSE OF THESE VISITS IS TO: SCREEN FOR MEDICAL ISSUES ASSESS YOUR RISK FOR FUTURE MEDICAL PROBLEMS ENCOURAGE A HEALTHY LIFESTYLE UPDATE VACCINATIONS AND OTHER PREVENTIVE CARE SERVICES HELP YOU GET TO KNOW YOUR PROVIDER IN CASE OF AN ILLNESS INFORMATION EVEN IF YOU FEEL FINE, YOU SHOULD STILL SEE YOUR PROVIDER FOR REGULAR CHECKUPS. THESE VISITS CAN HELP YOU AVOID PROBLEMS IN THE FUTURE. FOR EXAMPLE, THE ONLY WAY TO FIND OUT IF YOU HAVE HIGH BLOOD PRESSURE IS TO HAVE IT CHECKED REGULARLY. HIGH BLOOD SUGAR AND HIGH CHOLESTEROL LEVELS ALSO MAY NOT HAVE ANY SYMPTOMS IN THE EARLY STAGES. A SIMPLE BLOOD TEST CAN CHECK FOR THESE CONDITIONS. THERE ARE SPECIFIC TIMES WHEN YOU SHOULD SEE YOUR PROVIDER OR RECEIVE SPECIFIC HEALTH SCREENINGS. THE US PREVENTIVE SERVICES [employer] PUBLISHES A LIST OF RECOMMENDED SCREENINGS. BELOW ARE SCREENING GUIDELINES FOR WOMEN AGES 18 TO 39. BLOOD PRESSURE SCREENING YOUR BLOOD PRESSURE SHOULD BE CHECKED AT LEAST ONCE EVERY 3 TO 5 YEARS IF: YOUR BLOOD PRESSURE IS IN THE NORMAL RANGE (TOP NUMBER LESS THAN 120 MM HG AND BOTTOM NUMBER LESS THAN 80 MM HG) YOU DON'T HAVE RISK FACTORS FOR HIGH BLOOD PRESSURE ASK YOUR PROVIDER IF YOU NEED YOUR BLOOD PRESSURE CHECKED MORE OFTEN IF: THE TOP NUMBER IS 120 TO 129 MM HG OR THE BOTTOM NUMBER IS 70 TO 79 MM HG YOU HAVE DIABETES, HEART DISEASE, KIDNEY PROBLEMS, ARE OVERWEIGHT, OR HAVE CERTAIN OTHER HEALTH CONDITIONS YOU HAVE A FIRST-DEGREE RELATIVE WITH HIGH BLOOD PRESSURE YOU ARE BLACK YOU HAD HIGH BLOOD PRESSURE DURING A IF THE TOP NUMBER IS 130 MM HG OR GREATER OR THE BOTTOM NUMBER IS 80 MM HG OR GREATER, THIS IS CONSIDERED STAGE 1 HYPERTENSION. SCHEDULE AN APPOINTMENT WITH YOUR PROVIDER TO LEARN HOW YOU CAN REDUCE YOUR BLOOD PRESSURE. WATCH FOR BLOOD PRESSURE SCREENINGS IN YOUR AREA. ASK YOUR PROVIDER IF YOU CAN STOP IN TO HAVE YOUR BLOOD PRESSURE CHECKED. BREAST CANCER SCREENING EXPERTS DO NOT AGREE ABOUT THE BENEFITS OF BREAST SELF-EXAMS IN FINDING BREAST CANCER OR SAVING LIVES. TALK TO YOUR PROVIDER ABOUT WHAT IS BEST FOR YOU. A SCREENING MAMMOGRAM IS NOT RECOMMENDED FOR MOST WOMEN UNDER AGE 40. YOUR PROVIDER MAY DISCUSS AND RECOMMEND MAMMOGRAMS, MRI SCANS, OR ULTRASOUNDS IF YOU HAVE AN INCREASED RISK FOR BREAST CANCER, SUCH : A MOTHER OR SISTER WHO HAD BREAST CANCER AT A YOUNG AGE (MOST OFTEN STARTING SCREENING EARLIER THAN THE AGE THE CLOSE RELATIVE WAS DIAGNOSED) YOU CARRY A HIGH-RISK GENETIC MARKER CERVICAL CANCER SCREENING CERVICAL CANCER SCREENING SHOULD START AT AGE 21 YEARS UNLESS YOUR PROVIDER ADVISES OTHERWISE. AFTER THE FIRST TEST: WOMEN AGES 21 THROUGH 29 SHOULD HAVE A PAP TEST EVERY 3 YEARS. EXOPRTS DO NOT AGREE ON WHETHER HPV TESTING IS RECOMMENDED FOR THIS AGE GROUP. WOMEN AGES 30 THROUGH 65 SHOULD BE SCREENED WITH EITHER A PAP TEST EVERY 3 YEARS OR THE HPV TEST EVERY 5 YEARS OR BOTH TESTS EVERY 5 YEARS (CALLED COTESTING ). WOMEN WHO HAVE BEEN TREATED FOR PRECANCER (CERVICAL DYSPLASIA) SHOULD CONTINUE TO HAVE PAP TESTS FOR 20 YEARS AFTER TREATMENT OR UNTIL AGE 65, WHICHEVER IS LONGER. IF YOU HAVE HAD YOUR UTERUS AND CERVIX REMOVED (TOTAL HYSTERECTOMY), AND YOU HAVE NOT BEEN DIAGNOSED WITH CERVICAL CANCER OR PRECANCER (HIGH GRADE CERVICAL NEOPLASIA), YOU DO NOT NEED CERVICAL CANCER SCREENING. CHOLESTEROL SCREENING CHOLESTEROL SCREENING SHOULD BEGIN AT: AGE 45 FOR WOMEN WITH NO KNOWN RISK FACTORS FOR CORONARY HEART DISEASE AGE 20 FOR WOMEN WITH KNOWN RISK FACTORS FOR CORONARY HEART DISEASE REPEAT CHOLESTEROL SCREENING SHOULD TAKE PLACE: EVERY 5 YEARS FOR WOMEN WITH NORMAL CHOLESTEROL LEVELS MORE OFTEN IF CHANGES OCCUR IN LIFESTYLE (INCLUDING WEIGHT GAIN AND DIET) MORE OFTEN IF YOU HAVE DIABETES, HEART DISEASE, KIDNEY PROBLEMS, OR CERTAIN OTHER CONDITIONS DIABETES SCREENING YOU SHOULD BE SCREENED FOR DIABETES STARTING AT AGE 35 AND THEN REPEATED EVERY 3 YEARS IF YOU HAVE NO RISK FACTORS FOR DIABETES. SCREENING MAY NEED TO START EARLIER AND BE REPEATED MORE OFTEN IF YOU HAVE OTHER RISK FACTORS FOR DIABETES, SUCH : YOU HAVE A FIRST DEGREE RELATIVE WITH DIABETES. YOU ARE OVERWEIGHT OR HAVE OBESITY. YOU HAVE HIGH BLOOD PRESSURE, PREDIABETES, OR A HISTORY OF HEART DISEASE. SCREENING FOR DIABETES SHOULD BE DONE IF YOU ARE PLANNING TO BECOME AND YOU ARE OVERWEIGHT AND HAVE OTHER RISK FACTORS SUCH HIGH BLOOD PRESSURE. DENTAL EXAM GO TO THE DENTIST ONCE OR TWICE EVERY YEAR FOR AN EXAM AND CLEANING. YOUR DENTIST WILL EVALUATE IF YOU NEED MORE FREQUENT VISITS. EYE EXAM HAVE AN EYE EXAM EVERY 5 TO 10 YEARS BEFORE AGE 40. IF YOU HAVE VISION PROBLEMS, HAVE AN EYE EXAM EVERY 2 YEARS OR MORE OFTEN IF RECOMMENDED BY YOUR PROVIDER. YOU SHOULD HAVE AN EYE EXAM THAT INCLUDES AN EXAMINATION OF YOUR RETINA (BACK OF YOUR EYE) AT LEAST EVERY YEAR IF YOU HAVE DIABETES. IMMUNIZATIONS COMMONLY NEEDED VACCINES INCLUDE: FLU SHOT: GET ONE EVERY YEAR. COVID-19 VACCINE: ASK YOUR PROVIDER WHAT IS BEST FOR YOU. TETANUS-DIPHTHERIA AND ACELLULAR PERTUSSIS (TDAP) VACCINE: HAVE ONE AT OR AFTER AGE 19 ONE OF YOUR TETANUS-DIPHTHERIA VACCINES IF YOU DID NOT RECEIVE IT AN ADOLESCENT. TETANUS-DIPHTHERIA: HAVE A BOOSTER (OR TDAP) EVERY 10 YEARS. VARICELLA VACCINE: RECEIVE 2 DOSES IF YOU NEVER HAD CHICKENPOX OR THE VARICELLA VACCINE. HEPATITIS B VACCINE: RECEIVE 2, 3, OR 4 DOSES, DEPENDING ON YOUR EXACT CIRCUMSTANCES. MEASLES, MUMPS, AND RUBELLA (MMR) VACCINE: RECEIVE 1 TO 2 DOSES IF YOU ARE NOT ALREADY IMMUNE TO MMR. YOUR PROVIDER CAN TELL YOU IF YOU ARE IMMUNE. ASK YOUR PROVIDER ABOUT THE HUMAN PAPILLOMAVIRUS (HPV) VACCINE IF: YOU HAVE NOT RECEIVED THE HPV VACCINE IN THE PAST YOU HAVE NOT COMPLETED THE FULL VACCINE SERIES (YOU SHOULD CATCH UP ON THIS SHOT) ASK YOUR PROVIDER IF YOU SHOULD RECEIVE OTHER IMMUNIZATIONS IF YOU HAVE CERTAIN HEALTH PROBLEMS THAT INCREASE YOUR RISK FOR SOME DISEASES SUCH PNEUMONIA. INFECTIOUS DISEASE SCREENING WOMEN WHO ARE SEXUALLY ACTIVE SHOULD BE SCREENED FOR CHLAMYDIA AND GONORRHEA UP UNTIL AGE 25. WOMEN 25 YEARS AND OLDER SHOULD BE SCREENED FOR CHLAMYDIA AND GONORRHEA IF AT HIGH RISK. SCREENING FOR HEPATITIS C: ALL ADULTS AGES 18 TO 79 SHOULD GET A ONE-TIME TEST FOR HEPATITIS C. PEOPLE SHOULD BE SCREENED AT EVERY . SCREENING FOR HUMAN IMMUNODEFICIENCY VIRUS (HIV): ALL PEOPLE AGES 15 TO 65 SHOULD GET A ONE-TIME TEST FOR HIV. DEPENDING ON YOUR LIFESTYLE AND MEDICAL HISTORY, YOU MAY ALSO NEED TO BE SCREENED FOR INFECTIONS SUCH SYPHILIS AND HIV, WELL OTHER INFECTIONS. PHYSICAL EXAM ALL ADULTS SHOULD VISIT THEIR PROVIDER FROM TIME TO TIME, EVEN IF THEY ARE HEALTHY. THE PURPOSE OF THESE VISITS IS TO: SCREEN FOR DISEASE ASSESS YOUR RISK OF FUTURE MEDICAL PROBLEMS ENCOURAGE A HEALTHY LIFESTYLE UPDATE YOUR VACCINATIONS AND OTHER PREVENTIVE CARE SERVICES MAINTAIN A RELATIONSHIP WITH A PROVIDER IN CASE OF AN ILLNESS YOUR HEIGHT, WEIGHT, AND BMI SHOULD BE CHECKED AT EVERY EXAM. DURING YOUR EXAM, YOUR PROVIDER MAY ASK YOU ABOUT: DEPRESSION AND ANXIETY DIET AND EXERCISE ALCOHOL AND TOBACCO USE SAFETY ISSUES, SUCH USING SEAT BELTS, SMOKE DETECTORS, AND INTIMATE PARTNER VIOLENCE YOUR MEDICINES AND RISK FOR INTERACTIONS SKIN SELF-EXAM YOUR PROVIDER MAY CHECK YOUR SKIN FOR SIGNS OF SKIN CANCER, ESPECIALLY IF YOU'RE AT HIGH RISK, SUCH IF YOU: HAVE HAD SKIN CANCER BEFORE HAVE CLOSE RELATIVES WITH SKIN CANCER HAVE A WEAKENED IMMUNE SYSTEM OTHER SCREENING TALK WITH YOUR PROVIDER ABOUT COLON CANCER SCREENING IF YOU HAVE A STRONG FAMILY HISTORY OF COLON CANCER OR POLYPS, OR IF YOU HAVE HAD INFLAMMATORY BOWEL DISEASE OR POLYPS YOURSELF. ROUTINE BONE DENSITY SCREENING OF WOMEN UNDER 40 IS NOT RECOMMENDED. Coding Level of Care Code Est Pt Prev Care 18-39y(13265) Diagnoses Encounter for general adult medical examination without abnormal findings Z00.00 Additional Codes AMIRA-7 Assessment Billing - AMIRA-7 Assessment Tool: AMIRA-7 Assessment [id number] ([id number])
[2023-06-26 08:11] VITALS: BP 108/62; PULSE 76; O2SAT 97; BMI 24.8
== END 2023-06-26 08:46 | disposition home or self-care (01) ==
PROVIDERS: PCP Hospitalist; Visit Provider Nurse Practitioner Family
DX: Z00.00 Encounter for general adult medical examination without abnormal findings (principal)
CPT/HCPCS: 99395

== ENCOUNTER 2024-06-28 07:59 | Outpatient (AMB) | payer BC, SELFPAY ==
--- NOTE | 2024-06-28 08:03 | A.OFFPC_ITS ---
Vital Signs 06/28/24 08:07 Height 5 ft 5 in Weight 185 lb 2 oz BMI 30.8 BP 101/67 Blood Pressure Location Rt brachial Position Sitting Respiration 12 Pulse 101 H Pulse Source Pulse Oximeter Temp 97.4 F Temp Source Oral Pulse Oximetry (%) 96 Oxygen Delivery Method Room Air Intake Visit Reasons: cpe Intake Note: CPE. Patient is requesting a tdap. Addiction Therapist Required: No Allergies No Known Allergies Allergy (Verified 06/28/24 08:35) Medication List - Last Reconciled 06/28/24 by CASSIDY ThorntonP- bupropion HCl XL 150 mg PO QAM cholecalciferol (vitamin D3) 25 mcg PO DAILY escitalopram oxalate 15 mg PO DAILY levonorgestrel (Mirena) intrauterine Tobacco use date assessed: 06/28/24 Dental Screening Dental Screen Date: 06/28/24 Did you have a dental visit in the last 12 months?: No Did you have a dental problem in the last 6 months where you did not have access to dental care?: No Was dental information given to patient?: Yes HPI HPI Comments History of Present Illness Details 34-year-old female Crohn's disease, MDD, AMIRA Social: , with first child, Son. 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 Surgery - wisdom teeth removed Family hx: Dad asthma, alcohol, psych Mom -hypothyroid Siblings - 2 brothers - anxiety and depression MGM: breast cancer age 39, HTN, clotting disorder factor 5 leiden (patient has been screened for this and negative) MGF: HTN, DM, Factor 5 lieden - PGM: life long smoker, age 80 PGF: liver dz related to etoh - Maternal Uncle w/ Factor 5 otherwise denies sig hx in aunt, uncle and first degree cousins Specialists GI metrology engineer Ophtho due for exam this year Counselor [facility] Health maintenance Colonoscopy Jun 09 2022 repeat in 2024 Pap smear history of HPV in 2020, normal October 2022 Vaccines: Tdap admin today, Flu UTD Eyes - wears glasses/contacts, needs exam. Has PPO insurance, does not need referral. 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 On Buproprion. Stable. Goal to decrease & stop in the future. Skin - no issues Sleep - no issues Mood - good. ROS - General: Denies swelling, dizziness wi th position changes. - Cardiovascular: Denies hypertension. - Psychiatric: Reports mood as good, att ends regular counseling and psychiatric sessions. - Gastrointestinal: Denies recent flare or surgery for Crohn's disease. - Dermatological: Denies ongoing acne co ncerns, using regular skin care. - Obstetric: Denies complications such a s gestational diabetes, hypertension. During this visit, we discussed the importance of completing health maintenance by receiving the tetanus vaccine to protect against pertussis and tetanus, especially during . I explained the benefits and reassured that it does not cause illness, although it may cause localized soreness. We reviewed her psychiatric management plan and the rationale for maintaining her current medications during . The patient was informed there's no current need for additional labs as her care protocol covers all necessary tests. I confirmed her Crohn's disease is in remission and she is symptom-free. We discussed the transition to a vitamin due to her and reinforced the importance of maintaining her scheduled appointments with [facility]. We planned to follow up in a year for a complete physical or as needed. A&P 1. at 31 weeks, 5 days - No complications, tetanus vaccine admi nistered. 2. Major Depressive Disorder - Continue bupropion and esctialopram 15 mg. 3. Generalized Anxiety Disorder - Continue esctialopram 15 mg, psychiatr ic and counseling follow-ups. 4. Crohn's Disease - Remission, no current interventions. 5. Vitamin D Deficiency - Managed with supplements. Patient instructions - Continue taking your prescribed medica tions. - Attend scheduled appointments . - Get the tetanus shot today; your arm m ay feel sore. Move your arm often to help. - Take the vitamins daily. - See an eye doctor as you feel you are due for an eye exam. - Call or see me if you have any new sym ptoms or changes - RTO 1 year CPE sooner prn Consent Patient was informed and verbally consented to the use of an ambient scribe for clinic note documentation during this visit. [facility] Medical History (Updated 06/28/24 @ 08:52 by Gloria Pringle, PNEUMATIC TUBE REPAIRER-) Mixed anxiety and depressive disorder Hx of Crohn's disease Surgical History (Updated 06/26/24 @ 07:18 by VÍCTOR Thornton) Hx of wisdom tooth extraction Hx of endoscopy Hx of colonoscopy (~2022) Family History Maternal Grandmother Breast cancer Social History Household Members: Spouse Household Members Other:: getting in Oct. Housing: House 75 years or older and lives alone: No Alcohol intake: current Alcohol intake frequency: holidays/special occasions only Patient Tobacco Use Status: Never used Tobacco e-Cigarette/Vaping Use: Never Used service: No Current occupational status: employed Current occupation: [employer] Current occupational exposures/hazards: No Sexual orientation: Straight/Heterosexual Gender identity: Female Cognitive needs: No Hearing needs: No Vision needs: No Female Reproductive History Menstrual Age of Menarche: 11 Questionnaire PHQ-9 Over the last 2 weeks, how often have you been bothered by any of the following problems? 1. Little interest or pleasure in doing things: not at all 2. Feeling down, depressed, or hopeless: not at all 3. Trouble falling or staying asleep, or sleeping too much: not at all 4. Feeling tired or having little energy: not at all 5. Poor appetite or overeating: not at all 6. Feeling bad about yourself - or that you are a failure or have let yourself or your family down: not at all 7. Trouble concentrating on things, such as reading the newspaper or watching television: not at all 8. Moving or speaking so slowly that other people could have noticed. Or the opposite - being so fidgety or restless that you have been moving around a lot more than usual: not at all 9. Thoughts that you would be better off or of hurting yourself in some way: not at all Total score: 0 Depression Screening Interpretation: Negative Depression Screening Done: Yes 91115 - PHQ-9 Billing: Yes Source: Developed by Drs. Desmond Lara, Salma Story, Mauro Saldivar and colleagues, with an educational vidal from [employer]. Thrive Questionnaire Date Thrive assessed: 06/28/24 I am a: Patient What is your living situation today?: I have a steady place to live Within the past 12 months, did the food you bought not last and you didn't have the money to get more?: Never true Within the past 12 months, did you worry whether your food would run out before you got money to buy more?: Never true Do you have trouble paying for medicines?: No Do you have trouble getting transportation to medical appointments?: No Do you have trouble paying your heating and electricity bill?: No Do you have trouble taking care of your child, family member or friend?: No Do you have trouble with day-to-day activities such as bathing, preparing meals, shopping, managing finances, etc.?: No Are you currently unemployed and looking for a job?: No Are you interested in more education?: No Please select the resources that you would like help with: None Currently or been in a relationship where the following occur: No concerns reported THRIVE Score: 0 AUDIT C Alcohol Use Questionnaire (AUDIT-C) 1. How often do you have a drink containing alcohol?: Never 2. How many drinks containing alcohol do you have on a typical day when you are drinking?: 1 or 2 3. How often do you have six or more drinks on one occasion?: Never Total Score: 0 Score Reviewed/Action Taken: Yes AMIRA-7 AMB Questionnaire AMIRA-7 Date AMIRA - 7 assessed: 06/28/24 Feeling nervous, anxious, or on edge: 0 = Not at all Not being able to stop or control worryin = Not at all Worrying too much about different things: 0 = Not at all Trouble relaxin = Not at all Being so restless that it is hard to sit still: 0 = Not at all Becoming easily annoyed or irritable: 0 = Not at all Feeling afraid as if something awful might happen: 0 = Not at all Total AMIRA-7 score (0-4 normal; 5-9 mild; 10-14 moderate; 15-21 severe): 0 Source: Developed by Drs. Desmond Lara, Mauro Strong and colleagues, with an educational vidal from [employer]. AMIRA-7 Assessment Billing AMIRA-7 Assessment Tool: AMIRA-7 Assessment 78906 Physical exam (Primary Care) Vital Signs: Last Vital Signs Temp 97.4 F 06/28/24 08:07 Pulse 101 H 06/28/24 08:07 Resp 12 06/28/24 08:07 BP 101/67 06/28/24 08:07 Pulse Ox 96 06/28/24 08:07 Oxygen Delivery Method Room Air 06/28/24 08:07 BMI result Body Mass Index 30.8 BMI Assessment/Plan discussion: High BMI High, discussed plan: lifestyle Tobacco/Smoking Status: Tobacco use Status Tobacco use date assessed 06/28/24 06/28/24 08:09 Patient Tobacco Use Status Never used Tobacco 06/28/24 08:09 e-Cigarette/Vaping Use Never Used 06/28/24 08:09 PHQ-9: PHQ-9 Score PHQ-9: Total score 0 06/28/24 08:35 Depression Screening Interpretation: Negative Thrive Assessment: Date of Thrive Assessment Date Thrive assessed 06/28/24 06/28/24 08:09 Currently or been in a relationship where the following occur: No concerns reported Const Other: General: Well developed, well nourished, in no acute distress. Appears stated age. Head: Normocephalic, atraumatic. Eyes: Pupils are equal, round and reactive to light and accommodation. Conjunctivae are clear. Vision grossly normal. Ears: TMs clear AU, EACS WNL Nose: Patent, without discharge. Mouth: There are no ulcers or lesions noted. No inflammation, no post nasal drip, no plaques nor exudates. Neck: Supple, no adenopathy or thyromegaly. Lungs: Clear to auscultation bilaterally. No rales, rhonchi or wheeze noted. Good air flow in all gonzales. Heart: Regular rate and rhythm. No murmurs, click, rubs or gallops are noted. Abdomen: Bowel sounds present in all quadrants. The abdomen is soft, nontender, with no masses or organomegaly noted. No hernias are noted. Musculoskeletal: Joints are nontender, without swelling, redness, or effusions. Range of motion is observed to be normal. Pulses: Peripheral pulses are equal and palpable bilaterally. Extremities: No clubbing, cyanosis nor edema is noted. Neurologic: Gait and station normal. Cranial Nerves 2-12 intact. Motor strength grossly symmetrical and intact. No sensory loss. Balance normal. Skin: No rashes, ulcers, or lesions noted. Turgor is good. Skin color is good. Hair and nails are without abnormalities. Psych: Normal eye contact, affect and mood appropriate, and normal interactions. Patient is alert and appropriate to context. Extremities: No clubbing, cyanosis or edema. Immunizations Boostrix Tdap 2.5 Lf unit-8 mcg-5 Lf/0.5 mL intramuscular syringe Performing Provider: VÍCTOR Thornton Performing Location: [facility] Administered by: Jarad Sanchez MA on 06/28/24 08:55 Dose Route Admin Location Dispensed Lot Number Expiration Date [facility] [employer] Tester 0.5 mL IM Right Deltoid 0.5 mL [id number] 10/01/26 [id number] [employer] VIS Given Date VIS Provided VIS Publication Date 06/28/24 Single Vaccine 20 Eligibility Eligibility Date Funding Source Not [facility] Eligible 06/28/24 Private Coding Level of Care Code Est Pt Prev Care 18-39y(75372) Diagnoses Encounter for general adult medical examination without abnormal findings Z00.00 Obesity (BMI 30-39.9) E66.9 Crohn's disease in remission K50.90 AMIRA (generalized anxiety disorder) F41.1 Mild episode of recurrent major depressive disorder F33.0 Major depression episode severity: mild Need for Tdap vaccination Z23 Cervical cancer screening Z12.4 Family history of breast cancer Z80.3 with 31 completed weeks gestation Z3A.31 Additional Codes AMIRA-7 Assessment Billing - AMIRA-7 Assessment Tool: AMIRA-7 Assessment 28997 ([id number]) PHQ-9 - 71568 - PHQ-9 Billing: Yes ([id number]) Assessment & Plan Assessment & Plan (1) Encounter for general adult medical examination without abnormal findings: Onset Date: ~06/28/24 Code(s): Z00.00 - Encounter for general adult medical examination without abnormal findings Category: Medical (2) Obesity (BMI 30-39.9): Code(s): E66.9 - Obesity, unspecified Category: Medical (3) Crohn's disease in remission: Comment: Was on 1 biologic in the past. Colonoscopy 2022 within normal limits. Managed by [facility]. Repeat colonoscopy in 2024 Code(s): K50.90 - Crohn's disease, unspecified, without complications Category: Medical (4) AMIRA (generalized anxiety disorder): Comment: Active, currently maintained on Lexapro and bupropion. Active with [facility]. Code(s): F41.1 - Generalized anxiety disorder Category: Medical (5) MDD (major depressive disorder), recurrent episode: Comment: Active, currently maintained on Lexapro and bupropion. Active with [facility]. Code(s): F33.9 - Major depressive disorder, recurrent, unspecified Category: Medical Qualifiers: Major depression episode severity: mild Qualified Code(s): F33.0 - Major depressive disorder, recurrent, mild (6) Need for Tdap vaccination: Code(s): Z23 - Encounter for immunization Category: Medical (7) Cervical cancer screening: Comment: hx HPV pos; 10/18/2022 Pap is negative with negative HPV. Code(s): Z12.4 - Encounter for screening for malignant neoplasm of cervix Category: Medical (8) Family history of breast cancer: Comment: [facility] age 40 Code(s): Z80.3 - Family history of malignant neoplasm of breast Category: Medical Plan: . (9) with 31 completed weeks gestation: Code(s): Z3A.31 - 31 weeks gestation of Category: Medical Plan . Orders: Orders TDaP Immunization Today Z23 - Encounter for immunization Medications: New Boostrix Tdap (diphth,pertus(acell),tetanus) 0.5 mL IM ONCE 0.5 mL 0RF NS Z23 - Encounter for immunization Changed From escitalopram oxalate 20 mg PO DAILY 90 tabs 1RF F41.8 - Other specified anxiety disorders To escitalopram oxalate 15 mg PO DAILY F41.8 - Other specified anxiety disorders Patient Instructions: Patient instructions - Continue taking your prescribed medications. - Attend scheduled appointments. - Get the tetanus shot today; your arm may feel sore. Move your arm often to help. - Take the vitamins daily. - See an eye doctor as you feel you are due for an eye exam. - Call or see me if you have any new symptoms or changes Health screenings for women You should visit your health care provider from time to time, even if you are healthy. The purpose of these visits is to: Screen for medical issues Assess your risk for future medical problems Encourage a healthy lifestyle Update vaccinations and other preventive care services Help you get to know your provider in case of an illness Information Even if you feel fine, you should still see your provider for regular checkups. These visits can help you avoid problems in the future. For example, the only way to find out if you have high blood pressure is to have it checked regularly. High blood sugar and high cholesterol levels also may not have any symptoms in the early stages. A simple blood test can check for these conditions. There are specific times when you should see your provider or receive specific health screenings. The [place] Preventive Services Task Force publishes a list of recommended screenings. Below are screening guidelines for women ages 18 to 39. BLOOD PRESSURE SCREENING Your blood pressure should be checked at least once every 3 to 5 years if: Your blood pressure is in the normal range (top number less than 120 mm Hg and bottom number less than 80 mm Hg) You don't have risk factors for high blood pressure Ask your provider if you need your blood pressure checked more often if: The top number is 120 to 129 mm Hg or the bottom number is 70 to 79 mm Hg You have diabetes, heart disease, kidney problems, are overweight, or have certain other health conditions You have a first-degree relative with high blood pressure You are Black You had high blood pressure during a If the top number is 130 mm Hg or greater or the bottom number is 80 mm Hg or greater, this is considered stage 1 hypertension. Schedule an appointment with your provider to learn how you can reduce your blood pressure. Watch for blood pressure screenings in your area. Ask your provider if you can stop in to have your blood pressure checked. BREAST CANCER SCREENING Experts do not agree about the benefits of breast self-exams in finding breast cancer or saving lives. Talk to your provider about what is best for you. A screening mammogram is not recommended for most women under age 40. Your provider may discuss and recommend mammograms, MRI scans, or ultrasounds if you have an increased risk for breast cancer, such as: A mother or sister who had breast cancer at a young age (most often starting screening earlier than the age the close relative was diagnosed) You carry a high-risk genetic marker CERVICAL CANCER SCREENING Cervical cancer screening should start at age 21 years unless your provider advises otherwise. After the first test: Women ages 21 through 29 should have a Pap test every 3 years. Exoprts do not agree on whether HPV testing is recommended for this age group. Women ages 30 through 65 should be screened with either a Pap test every 3 years or the HPV test every 5 years or both tests every 5 years (called cotesting ). Women who have been treated for precancer (cervical dysplasia) should continue to have Pap tests for 20 years after treatment or until age 65, whichever is longer. If you have had your uterus and cervix removed (total hysterectomy), and you have not been diagnosed with cervical cancer or precancer (high grade cervical neoplasia), you do not need cervical cancer screening. CHOLESTEROL SCREENING Cholesterol screening should begin at: Age 45 for women with no known risk factors for coronary heart disease Age 20 for women with known risk factors for coronary heart disease Repeat cholesterol screening should take place: Every 5 years for women with normal cholesterol levels More often if changes occur in lifestyle (including weight gain and diet) More often if you have diabetes, heart disease, kidney problems, or certain other conditions DIABETES SCREENING You should be screened for diabetes starting at age 35 and then repeated every 3 years if you have no risk factors for diabetes. Screening may need to start earlier and be repeated more often if you have other risk factors for diabetes, such as: You have a first degree relative with diabetes. You are overweight or have obesity. You have high blood pressure, prediabetes, or a history of heart disease. Screening for diabetes should be done if you are planning to become and you are overweight and have other risk factors such as high blood pressure. DENTAL EXAM Go to the dentist once or twice every year for an exam and cleaning. Your dentist will evaluate if you need more frequent visits. EYE EXAM Have an eye exam every 5 to 10 years before age 40. If you have vision problems, have an eye exam every 2 years or more often if recommended by your provider. You should have an eye exam that includes an examination of your retina (back of your eye) at least every year if you have diabetes. IMMUNIZATIONS Commonly needed vaccines include: Flu shot: get one every year. COVID-19 vaccine: ask your provider what is best for you. Tetanus-diphtheria and acellular pertussis (Tdap) vaccine: have one at or after age 19 as one of your tetanus-diphtheria vaccines if you did not receive it as an adolescent. Tetanus-diphtheria: have a booster (or Tdap) every 10 years. Varicella vaccine: receive 2 doses if you never had chickenpox or the varicella vaccine. Hepatitis B vaccine: receive 2, 3, or 4 doses, depending on your exact circumstances. Measles, mumps, and rubella (MMR) vaccine: receive 1 to 2 doses if you are not already immune to MMR. Your provider can tell you if you are immune. Ask your provider about the human papillomavirus (HPV) vaccine if: You have not received the HPV vaccine in the past You have not completed the full vaccine series (you should catch up on this shot) Ask your provider if you should receive other immunizations if you have certain health problems that increase your risk for some diseases such as pneumonia. INFECTIOUS DISEASE SCREENING Women who are sexually active should be screened for chlamydia and gonorrhea up until age 25. Women 25 years and older should be screened for chlamydia and gonorrhea if at high risk. Screening for hepatitis C: All adults ages 18 to 79 should get a one-time test for hepatitis C. people should be screened at every . Screening for human immunodeficiency virus (HIV): All people ages 15 to 65 should get a one-time test for HIV. Depending on your lifestyle and medical history, you may also need to be screened for infections such as syphilis and HIV, as well as other infections. PHYSICAL EXAM All adults should visit their provider from time to time, even if they are healthy. The purpose of these visits is to: Screen for disease Assess your risk of future medical problems Encourage a healthy lifestyle Update your vaccinations and other preventive care services Maintain a relationship with a provider in case of an illness Your height, weight, and BMI should be checked at every exam. During your exam, your provider may ask you about: Depression and anxiety Diet and exercise Alcohol and tobacco use Safety issues, such as using seat belts, smoke detectors, and intimate partner violence Your medicines and risk for interactions SKIN SELF-EXAM Your provider may check your skin for signs of skin cancer, especially if you're at high risk, such as if you: Have had skin cancer before Have close relatives with skin cancer Have a weakened immune system OTHER SCREENING Talk with your provider about colon cancer screening if you have a strong family history of colon cancer or polyps, or if you have had inflammatory bowel disease or polyps yourself. Routine bone density screening of women under 40 is not recommended.
[2024-06-28 08:07] VITALS: BP 101/67; PULSE 101; RESP 12; TEMP 36.3; O2SAT 96; BMI 30.8
== END 2024-06-28 08:57 | disposition home or self-care (01) ==
LOC: HO.HMCFM 08:00
PROVIDERS: PCP Nurse Practitioner Family; Visit Provider Nurse Practitioner Family
DX: Z00.00 Encounter for general adult medical examination without abnormal findings (principal); E66.9 Obesity, unspecified; K50.90 Crohn's disease, unspecified, without complications; Z68.30 Body mass index [BMI] 30.0-30.9, adult; F41.1 Generalized anxiety disorder; F33.0 Major depressive disorder, recurrent, mild; Z23 Encounter for immunization; Z80.3 Family history of malignant neoplasm of breast; Z3A.31 31 weeks gestation of pregnancy

== ENCOUNTER → 2024-06-28 07:59 | Outpatient (BNVA) | payer BC, SELFPAY | PROVIDERS: PCP Nurse Practitioner Family; Visit Provider Nurse Practitioner Family | DX: O09.513 Supervision of elderly primigravida, third trimester (principal); Z23 Encounter for immunization; O99.213 Obesity complicating pregnancy, third trimester; E66.9 Obesity, unspecified; O99.613 Diseases of the digestive system complicating pregnancy, third trimester; K50.90 Crohn's disease, unspecified, without complications; O99.343 Other mental disorders complicating pregnancy, third trimester; F41.1 Generalized anxiety disorder; F33.0 Major depressive disorder, recurrent, mild; Z3A.31 31 weeks gestation of pregnancy; Z80.3 Family history of malignant neoplasm of breast | CPT/HCPCS: 90471; 90715; 96127 ==